=== PATIENT | male | born 1945 | race Caucasian/White ===

== ENCOUNTER 2016-07-24 08:40 | Emergency (ER) | payer OTHER ==
[~2016-07-24] VITALS: Ht 182.9 cm; Wt 124.7 kg
[~2016-07-24 08:40] MED LIST: ACETAMINOPHEN325 M1 PO; AMLODIPINE BESYL5 MG PO; COUMADIN 5 MG TA5 M1 PO; COUMADIN7.5 MG PO; DOXYCYCLINE 10100 MG PO; FERROUS SULFAT325 M1; FIBER1 GM PO; FIBER350 GM PO; FLONASE 0.05%50 MCG NASAL; FUROSEMIDE 40 M40 M1 PO; K-DUR 20 MEQ T20 MEQ PO; KLOR-CON 10 ER10 MEQ PO; KLOR-CON 1010 MEQ PO; LASIX 20 MG TAB20 MG PO; LASIX 40 MG TAB40 M1 PO; LISINOPRIL20 MG PO; LOPRESSOR 50 MG50 M1 PO; LOPRESSOR25 PO; METAMUCIL425 GM; MUCINEX600 MG PO; NORCO 10-325 T1 EACH PO; NORCO 5-325 TA1 EACH PO; NORFLEX100 MG PO; NORVASC 5 MG TAB5 MG; NORVASC 5 MG TAB5 MG PO; PRAVACHOL40 M1; PRAVACHOL40 MG PO; PREDNISONE 5 MG5 MG PO; SIMVASTATIN20 MG PO; STOOL SOFTENER1 EAC1 PO; TOPROL XL50 MG PO; VICKS VAPORUB O50 GM; ZOCOR 20 MG TAB20 M1 PO; ZOFRAN ODT4 MG PO
[2016-07-24] MEDS ORDERED: GLUCOSAMINE HC500 MG PO (10:20)
[2016-07-24 10:28] LABS: ABSOLUTE NEUTROPHILS 3.8 thou/uL (1.4-8.2); BASOPHILS 1.5 % (0.0-2.0); EOSINOPHILS 3.6 % (0.0-3.0); HEMATOCRIT 44.8 % (42.0-52.0); LYMPHOCYTES 23.7 % (24.0-44.0); MCH 30.1 pg (26.0-34.0); MCHC 33.5 % (28.0-37.0); MONOCYTES 10.2 % (1.0-8.0); PLATELET COUNT 174 thou/uL (150-400); RBC 4.98 mil/uL (4.50-6.00); RDW 14.1 % (10.5-14.5); WBC 6.3 thou/uL (4.0-11.0)
[2016-07-24 10:32] LABS: MANUAL DIFF NO
[2016-07-24 10:39] LABS: INR 2.7; PROTIME 28.1 Seconds (9.3-11.4)
[2016-07-24 10:43] LABS: POTASSIUM 4.2 mmol/L (3.5-5.1)
[2016-07-24 10:44] LABS: CALCIUM 8.7 mg/dL (8.5-10.1); CREATININE 0.9 mg/dL (0.6-1.3)
[2016-07-24 10:49] LABS: ALBUMIN 3.3 g/dL (3.4-5.0); TOTAL BILIRUBIN 0.4 mg/dL (<0.1-1.0)
[2016-07-24] MEDS ORDERED: PROCTOFOAM15 GM TP (11:27)
== END 2016-07-24 11:42 | disposition home or self-care (01) ==
LOC: ER 08:40
PROVIDERS: Physician Assistant
DX: K64.8 Other hemorrhoids (principal); J44.9 Chronic obstructive pulmonary disease, unspecified; E78.5 Hyperlipidemia, unspecified; I35.8 Other nonrheumatic aortic valve disorders; I48.91 Unspecified atrial fibrillation; F17.210 Nicotine dependence, cigarettes, uncomplicated; F10.99 Alcohol use, unspecified with unspecified alcohol-induced disorder; Z88.4 Allergy status to anesthetic agent